=== PATIENT | male | born 1980 | race Caucasian/White ===

== ENCOUNTER 2019-09-26 00:30 | Emergency (ER) | payer OTHER ==
[~2019-09-26] VITALS: Ht 180.3 cm; Wt 81.6 kg
[2019-09-26 01:12] VITALS: BP 139/75
--- NOTE | 2019-09-26 01:12 | NUR ---
PT IN TENT WAITING
--- NOTE | 2019-09-26 01:18 | NUR ---
39 Y/O MALE C/O X 12 DAYS COUGH THAT MAKES IT HARD FOR PT TO SLEEP; +SHIVERS/DIARRHEA; -N/V/CP; PT TOOK 1 GRAM OF TYLENOL AT 7PM LAST NIGHT WITH RELIEF; COVID NEGATIVE TEST ON 09/07/19; SKIN IS PINK/WARM/DRY; AAOX4 WITH EVEN AND STEADY GAIT; HR EVEN AND REGULAR; PT DENIES ANY CP, SOB AT THIS TIME; PATIENT STATES PAIN OF 7/10 AT THIS TIME; VSS; PATIENT POSITIONED FOR COMFORT IN CHAIR IN TENT PMH: PT DENIES NKA
--- NOTE | 2019-09-26 01:43 | NUR ---
ORAL COVID SWAB DONE
--- NOTE | 2019-09-26 01:49 | NUR ---
Patient discharged with v/s stable. Written and verbal after care instructions given and explained. Patient alert, oriented and verbalized understanding of instructions. Ambulatory with steady gait. All questions addressed prior to discharge. ID band removed. Patient advised to follow up with PMD. Rx of NORCO/AZITHROMYCIN given. Patient educated on indication of medication including possible reaction and side effects. Opportunity to ask questions provided and answered.
[2019-09-26 01:50] VITALS: BP 139/75
--- NOTE | 2019-09-27 07:39 | NUR ---
Received covid+ result from lab. 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
== END 2019-09-26 01:49 | disposition home or self-care (01) ==
LOC: MED 00:30
DX: B34.9 Viral infection, unspecified (principal); Z20.828 Contact with and (suspected) exposure to other viral communicable diseases
CPT/HCPCS: 99283; U0003